=== PATIENT | female | born 1995 | race African-American/Black ===

== ENCOUNTER 2016-08-19 03:38 | Emergency (ER) | payer BC, OTHER ==
[~2016-08-19 03:38] MED LIST: Z.0.NO CURRENT MEDS
[2016-08-19 03:45] VITALS: BP 135/92; PULSE 75; RESP 16; TEMP 97.8; O2SAT 100
[2016-08-19 03:55] VITALS: BP 137/83; PULSE 79; RESP 16; O2SAT 100
--- NOTE | 2016-08-19 04:07 | PD ---
HPI Chief Complaint: Chest Pain Time Seen by Provider: 03:51 Travel History International Travel<30 days: No Contact w/Intl Traveler<30days: No Traveled to known affect area: No History of Present Illness HPI The patient was seen and examined in the presence of the nurse. This patient woke up 40 minutes ago and had some pain in her low center chest. [place] like an aching pressure. It has resolved now. Severity was moderate. No cough or shortness of breath or fever or heartburn. No alleviating factors. PFSH Past Medical History Medical History: Denies Significant Hx Diminished Hearing: No ?: Unknown LMP: don't know Past Surgical History Surgical History: No Previous Surgery Social History Alcohol Use: No Tobacco Use: No (never) Substance Use: No Allergies-Medications (Allergen,Severity, Reaction): Coded Allergies: No Known Allergies (Verified , 08/19/16) Reported Meds & Prescriptions Reported Meds & Active Scripts Active No Active Prescriptions or Reported Medications Review of Systems General / Constitutional: No: Fever Eyes: No: Visual changes HENT: No: Headaches Cardiovascular: Positive: Chest Pain or Discomfort Respiratory: No: Shortness of Breath Gastrointestinal: No: Abdominal Pain Genitourinary: No: Dysuria Musculoskeletal: No: Pain Skin: No Rash Neurologic: No: Weakness Psychiatric: No: Depression Endocrine: No: Polydipsia Hematologic/Lymphatic: No: Easy Bruising Physical Exam Narrative GENERAL: Well-nourished, well-developed patient in no apparent distress. SKIN: Focused skin assessment reveals no rash and nodules. Skin is Warm and dry. HEAD: Atraumatic. Normocephalic. EYES: Pupils equal and round. No scleral icterus. No injection or drainage. ENT: No nasal bleeding or discharge. Mucous membranes pink and moist. NECK: Trachea midline. No JVD. CARDIOVASCULAR: Regular rate and rhythm. No murmur appreciated. RESPIRATORY: No accessory muscle use. Clear to auscultation. Breath sounds equal bilaterally. GASTROINTESTINAL: Abdomen soft, non-tender, nondistended. Hepatic and splenic margins not palpable. MUSCULOSKELETAL: No obvious deformities. No clubbing. No cyanosis. No edema. NEUROLOGICAL: Awake and alert. No obvious cranial nerve deficits. Motor grossly within normal limits. Normal speech. PSYCHIATRIC: Appropriate mood and affect; insight and judgment normal. Data Data Last Documented VS Vital Signs Date Time Temp Pulse Resp B/P Pulse Ox O2 Delivery O2 Flow Rate FiO2 08/19/16 03:55 79 16 137/83 100 Room Air 08/19/16 03:45 97.8 Orders Electrocardiogram (08/19/16 ) Chest, Single Ap (08/19/16 ) [facility] Medical Decision Making Medical Screen Exam Complete: Yes Emergency Medical Condition: Yes Medical Record Reviewed: Yes Differential Diagnosis Differential diagnosis includes OH, angina, pericarditis, pleurisy, GERD, anxiety. Narrative Course I have reviewed the patient's electronic medical record. i Reviewed her EKG which shows sinus rhythm and no ST elevation or ectopy I reviewed her chest x-ray which is normal On recheck her chest pain is completely gone and she feels fine Diagnosis Primary Impression: Chest pain in adult Additional Instructions: The patient was advised to follow up with their physician and return if they worsen. Med/Other Pt SpecificInfo: Other Scripts No Active Prescriptions or Reported Meds Disposition: 01 DISCHARGE HOME Condition: Stable Blake Blair MD Aug 19, 2016 04:07
--- NOTE | 2016-08-19 06:26 | RADRPT ---
EXAM DATE/TIME: 08/19/2016 04:20 [place] COMPARISON: No previous studies available for comparison. INDICATIONS : Lower chest pain. MEDICAL HISTORY : None. SURGICAL HISTORY : None. ENCOUNTER: Initial ACUITY: 1 day PAIN SCORE: 7/10 LOCATION: Bilateral chest Lower chest, upper abdomen FINDINGS: A single view of the chest demonstrates the lungs to be symmetrically aerated without evidence of mas s, infiltrate or effusion. The cardiomediastinal contours are unremarkable. Osseous structures are intact. CONCLUSION: No acute disease. Mac Tyler MD on August 19, 2016 at 6:24 Board Certified Radiologist. This report was verified electronically.
--- NOTE | 2016-08-19 16:09 | EKG ---
Date Performed: 08/19/2016 Time Performed: 03:56:37 PTAGE: 21 years EKG: Sinus rhythm WITH MARKED SINUS ARRHYTHMIA BORDERLINE ECG NO PREVIOUS TRACING DOCTOR: Sam Cavanaugh Interpretating Date/Time 08/19/2016 16:08:04
== END 2016-08-19 05:49 | disposition home or self-care (01) ==
LOC: NEPC 03:38
DX: R07.9 Chest pain, unspecified (principal)
CPT/HCPCS: 71010; 93005

== ENCOUNTER 2017-01-11 18:57 | Emergency (ER) | payer BC, OTHER ==
[~2017-01-11] VITALS: Ht 167.6 cm; Wt 66.0 kg
[2017-01-11 19:00] VITALS: BP 139/94; PULSE 79; RESP 15; TEMP 97.7; O2SAT 99
[2017-01-11] MEDS ORDERED: ONDANSETRON ODT 4 MG TAB PO ONE (20:00)
[2017-01-11] MEDS ORDERED: metroNIDAZOLE 500 MG TAB PO ONE (20:00)
--- NOTE | 2017-01-11 20:34 | PD ---
HPI Chief Complaint: GI Complaint Time Seen by Provider: 19:41 Travel History International Travel<30 days: No Contact w/Intl Traveler<30days: No Traveled to known affect area: No History of Present Illness HPI 21-year-old female that presents to the ED for evaluation of nausea and vaginal discharge. Per patient she went to an urgent care today and was told by her doctor that she has trichomonas. Per patient she had the vaginal exam and had tests for it and she was called today telling her that she had Trichomonas. Patient herself did not want to take any by mouth medications because she is concerned about getting just infection but has been applying the vaginal Flagyl with some relief but she is concerned because she still nauseous and she is also having some pain when she applies the cream. She denies any STD exposure otherwise. She denies any chest pain or shortness of breath. No fevers chills or sweats. No abdominal pain. Per patient she does have some discharge but is appears to be improved. She has used 2 doses of the Flagyl cream. She is here mainly because she feels gaseous and she is concerned she may also be having a UTI. She states that she feels nauseous and she believes this might have to do more with not having eaten anything today. She has no allergies to medication. Again she has no pain. She does have polyuria. PFSH Past Medical History Medical History: Denies Significant Hx Diminished Hearing: No Immunizations Current: Yes ?: Not LMP: 01/03/17 Past Surgical History Surgical History: No Previous Surgery Social History Alcohol Use: Yes (rare) Tobacco Use: No (never) Substance Use: No Allergies-Medications (Allergen,Severity, Reaction): Coded Allergies: No Known Allergies (Verified Adverse Reaction, Unknown, 01/11/17) Reported Meds & Prescriptions Reported Meds & Active Scripts Active Diflucan (Fluconazole) 150 Mg Tab 150 Mg PO ONCE Zofran (Ondansetron HCl) 4 Mg Tab 4 Mg PO Q6HR PRN Macrobid (Nitrofurantoin Monoh/Nitrofur Macro) 100 Mg Cap 100 Mg PO BID 10 Days Review of Systems Except as stated in HPI: all other systems reviewed are Neg Physical Exam Narrative GENERAL: SKIN: Warm and dry. HEAD: Atraumatic. Normocephalic. EYES: Pupils equal and round. No scleral icterus. No injection or drainage. ENT: No nasal bleeding or discharge. Mucous membranes pink and moist. NECK: Trachea midline. No JVD. CARDIOVASCULAR: Regular rate and rhythm. RESPIRATORY: No accessory muscle use. Clear to auscultation. Breath sounds equal bilaterally. GASTROINTESTINAL: Abdomen soft, non-tender, nondistended. Hepatic and splenic margins not palpable. MUSCULOSKELETAL: Extremities without clubbing, cyanosis, or edema. No obvious deformities. Full range of motion of the upper and lower extremities bilaterally. 2+ pulses bilaterally. NEUROLOGICAL: Awake and alert. No obvious cranial nerve deficits. Motor grossly within normal limits. Five out of 5 muscle strength in the arms and legs. Normal speech. PSYCHIATRIC: Appropriate mood and affect; insight and judgment normal. Data Data Last Documented VS Vital Signs Date Time Temp Pulse Resp B/P (MAP) Pulse Ox O2 Delivery O2 Flow Rate FiO2 01/11/17 19:54 16 01/11/17 19:00 97.7 79 139/94 (109) 99 Room Air Orders Orders Gc And Chlamydia Pcr (01/11/17 19:45) Urinalysis - C+S If Indicated (01/11/17 19:45) Ed Urine Pregnancytest Poc (01/11/17 19:45) Metronidazole (Flagyl) (01/11/17 20:00) Ondansetron Odt (Zofran Odt) (01/11/17 20:00) Urine Culture (01/11/17 20:30) Ed Discharge Order (01/11/17 21:01) Labs Laboratory Tests Test 01/11/17 20:30 Urine Color YELLOW Urine Turbidity HAZY Urine pH 5.5 Urine Specific [place] 1.022 Urine Protein TRACE mg/dL Urine Glucose (UA) NEG mg/dL Urine Ketones 10 mg/dL Urine Occult Blood NEG Urine Nitrite NEG Urine Bilirubin NEG Urine Urobilinogen 2.0 MG/DL Urine Leukocyte Esterase LARGE Urine RBC 9 /hpf Urine WBC 178 /hpf Urine Squamous Epithelial Cells 15 /hpf Urine Amorphous Sediment RARE Urine Bacteria RARE /hpf Urine Mucus FEW /lpf Microscopic Urinalysis Comment CULTURE INDICATED MDM Medical Decision Making Medical Screen Exam Complete: Yes Emergency Medical Condition: Yes Medical Record Reviewed: Yes Interpretation(s) UA shows UTI Differential Diagnosis Vaginitis versus Trichomonas versus UTI versus nausea Narrative Course 21-year-old female that presents to the ED for evaluation of possible trichomonas. Patient was properly examined and was found to have signs and symptoms consistent with vaginitis. Patient had a pelvic exam today and had tests that show positive for Trichomonas. She was given the Flagyl cream and she reports some discomfort from applying this in the vagina. She wanted to make sure that she was doing the right thing. She is also feeling nauseous which is not sure if is related to the symptoms. Patient apparently was hesitant to take the Flagyl by mouth because she was concerned she'll get bacterial vaginosis or a yeast infection. I reassured the patient that the Flagyl cover for bacterial vaginosis and we can give her a prescription for Diflucan if she has a yeast infection. Urine will be done. This showed UTI. Will prescribe macrobid. Given prescription for zofran. Given prescription for diflucan to use if yeast infection develops. F/u with PCP. See ED if worst. Diagnosis Primary Impression: Trichomonal vaginitis Additional Impression: UTI (urinary tract infection) Qualified Codes: N30.00 - Acute cystitis without hematuria Patient Instructions: General Instructions Additional Instructions: Take medication as prescribed. Only take diflucan if you feel like you are developing yeast infection. No sex for 2 weeks. Always use protection. See ED worsening symptoms. Med/Other Pt SpecificInfo: Prescription(s) given Scripts Fluconazole (Diflucan) 150 Mg Tab 150 MG PO ONCE for Infection, #1 TAB 0 Refills Prov: Benny Meade MD 01/11/17 Ondansetron (Zofran) 4 Mg Tab 4 MG PO Q6HR Y for NAUSEA OR VOMITING, #10 TAB 0 Refills Prov: Benny Meade MD 01/11/17 Nitrofurantoin Monohydrate Macrocrystals (Macrobid) 100 Mg Cap 100 MG PO BID for Infection for 10 Days, #20 CAP 0 Refills Prov: Benny Meade MD 01/11/17 Disposition: 01 DISCHARGE HOME Condition: Stable Loe Boone Jan 11, 2017 20:34
[2017-01-11 20:42] LABS: BACTERIA, URINE RARE /hpf; BLOOD, URINE NEG (NEG); COMMENT (UR) CULTURE INDICATED; CULTURE IF INDICATED CULTURE INDICATED; GLUCOSE,URINE NEG (NEG); KETONE, URINE 10 mg/dL (NEG); MUCUS URINE FEW /lpf (OCC); NITRITE,URINE NEG (NEG); PH, URINE 5.5 (5.0-8.5); SQUAMOUS EPITHELIAL CELL URINE 15 /hpf (0-5); URINE COLOR YELLOW (YELLW/STRAW)
[2017-01-11] MEDS ORDERED: DIFL150T PO (20:56)
[2017-01-11] MEDS ORDERED: ZOFR4TAB PO (20:56)
[2017-01-11] MEDS ORDERED: MACR100C2 PO (20:56)
[2017-01-12 02:38] LABS: CHLAMYDIA PCR NOT DETECTED (NOT DETECT); NEISSERIA PCR NOT DETECTED (NOT DETECT)
== END 2017-01-11 21:21 | disposition home or self-care (01) ==
LOC: NEPD 18:57
DX: A59.01 Trichomonal vulvovaginitis (principal); N30.00 Acute cystitis without hematuria
CPT/HCPCS: 81001; 84703; 87086; 87491; 87591; 99284

== ENCOUNTER 2017-02-23 18:36 | Emergency (ER) | payer OTHER ==
[~2017-02-23 18:36] MED LIST changes: +DIFL150T PO; +MACR100C2 PO; -Z.0.NO CURRENT MEDS; +ZOFR4TAB PO
[2017-02-23 18:37] VITALS: BP 144/73; PULSE 69; RESP 14; TEMP 97.7; O2SAT 100
--- NOTE | 2017-02-23 19:46 | PD ---
HPI Chief Complaint: Pathology Specialist Problem/Complaint Time Seen by Provider: 19:46 Travel History International Travel<30 days: No Contact w/Intl Traveler<30days: No Traveled to known affect area: No History of Present Illness HPI Pt is a 21-year-old female presenting to the emergency department for evaluation of vaginal discharge and itching. Patient states that for the last 3 days she's had clumpy white vaginal discharge and perineal itching. She also reports a foul odor. She denies any fever, chills, nausea, vomiting, abdominal pain. She further denies any dysuria. States that she has had recent unprotected sex. No recent hahj-vxc-lqiryet treatments. There are no alleviating or exacerbating factors. PFSH Past Medical History Medical History: Denies Significant Hx Diminished Hearing: No Immunizations Current: Yes ?: Unknown LMP: January 2017 Social History Alcohol Use: Yes (rare) Tobacco Use: No (never) Substance Use: No Allergies-Medications (Allergen,Severity, Reaction): Coded Allergies: No Known Allergies (Verified Adverse Reaction, Unknown, 01/11/17) Reported Meds & Prescriptions Reported Meds & Active Scripts Active Diflucan (Fluconazole) 150 Mg Tab 150 Mg PO ONCE Zofran (Ondansetron HCl) 4 Mg Tab 4 Mg PO Q6HR PRN Macrobid (Nitrofurantoin Monoh/Nitrofur Macro) 100 Mg Cap 100 Mg PO BID 10 Days Review of Systems Except as stated in HPI: all other systems reviewed are Neg General / Constitutional: No: Fever, Chills HENT: No: Headaches Cardiovascular: No: Chest Pain or Discomfort Respiratory: No: Shortness of Breath Gastrointestinal: No: Nausea, Vomiting, Abdominal Pain Genitourinary: Positive: Discharge, No: Dysuria Skin: Positive Itching Physical Exam Narrative GENERAL: Well-developed, well-nourished, well-appearing female. In no acute distress. SKIN: Warm and dry. HEAD: Normocephalic. EYES: No scleral icterus. No injection or drainage. CARDIOVASCULAR: Regular rate RESPIRATORY: No accessory muscle use, no nasal flaring, normal respiratory rate. MUSCULOSKELETAL: No cyanosis, or edema. BACK: No obvious deformities NEUROLOGICAL: Awake and alert. Normal speech. Data Data Last Documented VS Vital Signs Date Time Temp Pulse Resp B/P (MAP) Pulse Ox O2 Delivery O2 Flow Rate FiO2 02/23/17 18:37 97.7 69 14 144/73 (96) 100 [facility] Medical Decision Making Medical Screen Exam Complete: Yes Emergency Medical Condition: Yes Interpretation(s) Vital Signs Date Time Temp Pulse Resp B/P (MAP) Pulse Ox O2 Delivery O2 Flow Rate FiO2 02/23/17 18:37 97.7 69 14 144/73 (96) 100 Differential Diagnosis Bacterial vaginosis versus Megan versus STD versus UTI versus other Narrative Course Patient is a 21-year-old female presented to emergency department evaluation of vaginal discharge and itching. Patient's vital signs are stable, she is well- appearing. Patient is awaiting bed placement. Patient is well-appearing. Patient Lin Mason has decided to leave the hospital against medical advice. This patient has the capacity to refuse care and understands the risks of leaving, including permanent disability and/or , and has had an opportunity to ask questions about her condition. The patient has been informed that she may return for care at any time, and follow up has been arranged/ advised. Diagnosis Primary Impression: Left against medical advice Chiquis Edmondson Feb 23, 2017 19:46
== END 2017-02-23 19:40 | disposition left against medical advice (07) ==
LOC: NED 18:36
DX: N89.8 Other specified noninflammatory disorders of vagina (principal)
CPT/HCPCS: 99281

== ENCOUNTER 2017-03-11 13:09 | Emergency (ER) | payer OTHER ==
[~2017-03-11] VITALS: Ht 167.6 cm; Wt 67.0 kg
[2017-03-11 13:11] VITALS: BP 118/78; PULSE 126; RESP 14; TEMP 102.3; O2SAT 100
[2017-03-11] MEDS ORDERED: IBUP-232 PO (14:47)
[2017-03-11] MEDS ORDERED: OSEL75 PO (14:47)
--- NOTE | 2017-03-11 14:48 | PD ---
HPI Chief Complaint: Fever Time Seen by Provider: 14:27 Travel History International Travel<30 days: No Contact w/Intl Traveler<30days: No Traveled to known affect area: No History of Present Illness HPI The patient's 21 years old and complains of body aches and pains cough and fever for about 1 day. The patient has a significant other at home with similar symptoms as well as multiple contacts with influenza. Severity mild to moderate. Onset gradual. Timing constant. PFSH Past Medical History Diminished Hearing: No Immunizations Current: Yes Social History Alcohol Use: Yes (rare) Tobacco Use: No (never) Substance Use: No Allergies-Medications (Allergen,Severity, Reaction): Coded Allergies: No Known Allergies (Verified Adverse Reaction, Unknown, 03/11/17) Reported Meds & Prescriptions Reported Meds & Active Scripts Active Diflucan (Fluconazole) 150 Mg Tab 150 Mg PO ONCE Zofran (Ondansetron HCl) 4 Mg Tab 4 Mg PO Q6HR PRN Macrobid (Nitrofurantoin Monoh/Nitrofur Macro) 100 Mg Cap 100 Mg PO BID 10 Days Review of Systems Except as stated in HPI: all other systems reviewed are Neg General / Constitutional: Positive: Fever Physical Exam Narrative GENERAL: 21-year-old female pleasant well-nourished well-developed SKIN: Warm and dry. HEAD: Atraumatic. Normocephalic. EYES: Pupils equal and round. No scleral icterus. No injection or drainage. ENT: No nasal bleeding or discharge. Mucous membranes pink and moist. Posterior oropharynx widely patent trace erythema without exudate. NECK: Trachea midline. No JVD. CARDIOVASCULAR: Regular rate and rhythm. RESPIRATORY: No accessory muscle use. Clear to auscultation. Breath sounds equal bilaterally. GASTROINTESTINAL: Abdomen soft, non-tender, nondistended. Hepatic and splenic margins not palpable. MUSCULOSKELETAL: Extremities without clubbing, cyanosis, or edema. No obvious deformities. NEUROLOGICAL: Awake and alert. No obvious cranial nerve deficits. Motor grossly within normal limits. Five out of 5 muscle strength in the arms and legs. Normal speech. PSYCHIATRIC: Appropriate mood and affect; insight and judgment normal. Data Data Last Documented VS Vital Signs Date Time Temp Pulse Resp B/P (MAP) Pulse Ox O2 Delivery O2 Flow Rate FiO2 03/11/17 13:11 102.3 126 14 118/78 (91) 100 Room Air Vital signs reviewed Orders Orders Influenzae A/B Antigen (03/11/17 13:44) [facility] Medical Decision Making Medical Screen Exam Complete: Yes Emergency Medical Condition: Yes Medical Record Reviewed: Yes Differential Diagnosis Influenza, UTI, pneumonia Narrative Course Today's presentation is consistent with influenza and the patient although febrile tachycardic is otherwise young and healthy and can be managed at home with oral hydration and xhaa-zvn-rfththv cold medications plus Tamiflu which we prescribed him first dose given here. Negative influenza result was considered to be a false negative as the presentation is essentially pathognomonic for influenza this season. Diagnosis Primary Impression: Influenza Referrals: Primary Care Physician as needed Med/Other Pt SpecificInfo: Prescription(s) given Scripts Ibuprofen (Ibuprofen) 600 Mg Tab 600 MG PO Q8H Y for PAIN SCALE 4 TO 10 for 7 Days, #21 TAB 0 Refills Prov: Levon Mcmahan MD 03/11/17 Oseltamivir (Tamiflu) 75 Mg Cap 75 MG PO BID for Mgmt Viral Infection for 5 Days, #10 CAP 0 Refills Prov: Levon Mcmahan MD 03/11/17 Disposition: 01 DISCHARGE HOME Condition: Stable Levon Mcmahan MD Mar 11, 2017 14:48
[2017-03-11] MEDS ORDERED: ACETAMINOPHEN 325 MG TAB PO ONE (15:00)
[2017-03-11] MEDS ORDERED: OSELTAMIVIR PHOSPHATE 75 MG CAP PO ONE (15:00)
== END 2017-03-11 16:22 | disposition home or self-care (01) ==
LOC: NEPD 13:09
DX: J11.1 Influenza due to unidentified influenza virus with other respiratory manifestations (principal); R00.0 Tachycardia, unspecified; Z79.899 Other long term (current) drug therapy
CPT/HCPCS: 87804; 99283